=== PATIENT | male | born 1975 ===

== ENCOUNTER 2022-10-14 19:38 | Emergency (ER) | payer OTHER ==
[~2022-10-14] VITALS: Ht 167.6 cm; Wt 74.7 kg
[2022-10-14 21:26] LABS: Urine Bacteria NONE SEEN /hpf (None Seen); Urine Blood Negative /uL (Negative); Urine Specific Gravity 1.005 (1.001-1.035); Urine WBC <1 /hpf (0 - 3)
[2022-10-14 21:35] LABS: Albumin 4.1 g/dL (3.4-5.0); Calcium 8.6 mg/dL (8.5-10.1)
[2022-10-14 21:37] LABS: BUN/Creatinine Ratio 15.9 (10.0-20.0)
[2022-10-14 21:40] LABS: Bilirubin, Total 0.4 mg/dL (0.2-1.0); Total Protein 7.5 g/dL (6.4-8.2)
[2022-10-14 21:47] LABS: Basophils # (auto) 0.1 10 ^3/uL (0-0.2); Eosinophils # (auto) 0.1 10 ^3/uL (0-0.8); Eosinophils % (auto) 0.8 % (0.0-7.0); Hemoglobin 16.2 g/dL (13.5-17.5); Lymphocytes # (auto) 1.4 10 ^3/uL (0.4-5.4); Lymphocytes % (auto) 12.7 % (10.0-50.0); Mean Corpuscular Hemoglobin 29.9 pg (28.0-32.0); Mean Corpuscular Hgb Conc. 35.9 g/dL (32.0-36.0); Mean Corpuscular Volume 83.2 fL (80.0-100.0); Monocytes # (auto) 0.5 10 ^3/uL (0-1.3); Monocytes % (auto) 4.7 % (0.0-12.0); Neutrophils # (auto) 8.6 10 ^3/uL (1.6-8.6); Neutrophils % (auto) 80.8 % (37.0-80.0); Nucleated Red Blood Cells % 0.9 %; Red Blood Cells 5.41 10^6/uL (4.5-5.90); Red Cell Distribution Width 14.1 % (11.8-14.3); White Blood Cell 10.6 10^3/uL (4.4-10.8)
[2022-10-14 22:26] LABS: Potassium 2.8 mmol/L (3.5-5.1)
[2022-10-14] MEDS ORDERED: POTASSIUM CHL 20 Meq TABLET PO ONE (22:45)
[2022-10-15] MEDS ORDERED: POTA10TA51 PO (01:06)
[2022-10-15 03:00] VITALS: BP 140/93
== END 2022-10-15 03:10 | disposition home or self-care (01) ==
LOC: ER 19:38
DX: E87.6 Hypokalemia (principal); R55 Syncope and collapse; F14.10 Cocaine abuse, uncomplicated
CPT/HCPCS: 36415; 80053; 81001; 83690; 85025; 93005